=== PATIENT | male | born 1995 | race Asian ===

== ENCOUNTER 2017-07-19 15:56 | Emergency (ER) | payer OTHER ==
[2017-07-19 15:59] VITALS: TEMP 37; Ht 182.9 cm
[2017-07-19] MEDS ORDERED: ACETAMINOPHEN 500 MG TAB PO STA (16:45)
[2017-07-19] MEDS ORDERED: TRAMADOL HCL 50 MG TAB PO STA (16:45)
[2017-07-19] MEDS ORDERED: ONDANSETRON 4MG OD TAB PO STA (16:45)
[2017-07-19] MEDS ORDERED: ATV/1 PO (16:48)
--- NOTE | 2017-07-19 17:18 | DIAGNOSTIC IMAGING REPORT ---
HEAD WITHOUT CONTRAST (CT) CLINICAL HISTORY: 22 years-old Male presenting with WORSENING ALDANA, NO CHI. TECHNIQUE: Multidetector CT imaging of the head was performed without the use of intravenous contrast. IV contrast: None. A dose lowering technique was used consistent with the principles of ALARA (as low as reasonably achievable). COMPARISON: None. CT DOSE (mGy.cm): The estimated cumulative dose is 537.48 mGy.cm. FINDINGS: High Density Press Operator topogram: Unremarkable. Ventricles and sulci normal in size. Brain parenchyma normal in appearance with preserved johns-white differentiation. No mass effect or midline shift. No hemorrhage or acute territorial infarct. No extra-axial fluid collection. Paranasal sinuses and mastoid air cells clear. Calvarium intact. IMPRESSION: 1. No acute intracranial abnormality. Electronically signed by: Rafat Alva M.D. 07/19/2017 5:17 PM Dictated Date/Time: 07/19/2017 5:14 PM
[2017-07-19] MEDS ORDERED: TRAM-10 PO (18:04)
[2017-07-19] MEDS ORDERED: FRCT/ PO (18:04)
[2017-07-19 18:25] VITALS: BP 125/79; PULSE 77; O2SAT 99
--- NOTE | 2017-07-20 02:19 | EMERGENCY ROOM VISIT NOTE ---
History First contact with patient: 16:33 Chief Complaint: HEADACHE Stated Complaint: HEADACHE History of Present Illness The patient is a 22 year old male who presents to the Emergency Room with complaints of frequent and worsening headaches. The patient reports that he has had the symptoms over the past year. He reports that he gets headaches in the top of his head that then starts to radiate around both temples. He also reports tinnitus, photophobia, phonophobia and nausea. The patient denies any significant head injuries. Seen at [facility] four times for his headaches, and prescribed Klonopin for anxiety. He has been using ibuprofen without relief of his pain. He reports a strong family history of migraines. He denies any recent upper respiratory infections, cough, sore throat, sinus congestion or earache. He also denies any pain extending into the neck or back. He currently rates his discomfort a 9 out of 10. The patient is an undergraduate student and reports being under a lot of stress right now. His sleep pattern is irregular. The patient denies having any imaging or laboratory studies performed at [facility]. Review of Systems 10 system review was performed and was negative except for pertinent positives and negatives as indicated in history of present illness Past Medical/Surgical History Medical Problems: (1) ADHD (attention deficit hyperactivity disorder) Surgical Problems: (1) No history of previous surgery Family History FH: migraines Social History Smoking Status: Current Some Day Smoker Alcohol Use: occasionally Marital Status: single Housing Status: lives with roommate Occupation Status: [employer] Current/Historical Medications Scheduled PRN Acetamin/Butalbital/Caffeine (Fioricet), 1 TAB PO Q4H PRN for headache Lorazepam (Ativan), 1 MG PO UD PRN for ANXIETY Tramadol (Ultram), 1-2 TAB PO Q4H PRN for Pain Physical Exam Vital Signs Date Time Temp Pulse Resp B/P (MAP) Pulse Ox O2 Delivery O2 Flow Rate FiO2 07/19/17 18:25 77 18 125/79 99 07/19/17 15:59 37.0 100 18 127/88 98 Room Air Physical Exam CONSTITUTIONAL: Healthy and well nourished. Alert and oriented X 3 with positive affect. Patient appears in moderate discomfort from pain, holding his eyes shut. HEENT: Normocephalic, atraumatic. Pupils equal, round and reactive. Ears and nares are clear. Patient is photophobic, precluding funduscopic exam. No scleral icterus or conjunctival injection noted. NECK: Full active range of motion without discomfort. No JVD or carotid bruits. RESPIRATORY: Clear to auscultation bilaterally with no wheezing, crackles, rhonchi or stridor. CARDIOVASCULAR: Regular rate and rhythm with no murmurs, rubs or gallops. GASTROINTESTINAL: Bowel sounds present in all quadrants. Soft and nontender to palpation. MUSCULOSKELETAL: Full range of motion of all joints without discomfort. Equal hand event sales manager bilaterally. INTEGUMENTARY: No rash or other significant dermatologic conditions noted. NEUROLOGIC: Cranial nerves II-XII grossly intact. No focal neurologic deficits noted. Normal finger to nose test. Negative pronator drift. No ataxia with ambulation. Medical Decision & Procedures ER Provider Diagnostic Interpretation: Noncontrast CT of the head does not show any intracranial bleed, suspicious masses, midline shift or mass effect. Radiologist report is as follows: HEAD WITHOUT CONTRAST (CT) CLINICAL HISTORY: 22 years-old Male presenting with WORSENING ALDANA, NO CHI. TECHNIQUE: Multidetector CT imaging of the head was performed without the use of intravenous contrast. IV contrast: None. A dose lowering technique was used consistent with the principles of ALARA (as low as reasonably achievable). COMPARISON: None. CT DOSE (mGy.cm): The estimated cumulative dose is 537.48 mGy.cm. FINDINGS: Sr. Consultant topogram: Unremarkable. Ventricles and sulci normal in size. Brain parenchyma normal in appearance with preserved johns-white differentiation. No mass effect or midline shift. No hemorrhage or acute territorial infarct. No extra-axial fluid collection. Paranasal sinuses and mastoid air cells clear. Calvarium intact. IMPRESSION: 1. No acute intracranial abnormality. Medications Administered Medications (Trade) Dose Ordered Sig/Rupinder Route Start Time Stop Time Status Last Admin Dose Admin Tramadol HCl (Ultram Tab) 50 mg NOW STAT PO 07/19/17 16:45 07/19/17 16:46 DC 07/19/17 17:05 50 MG Ondansetron HCl (Zofran Odt) 4 mg NOW STAT PO 07/19/17 16:45 07/19/17 16:46 DC 07/19/17 17:04 4 MG Acetaminophen (Tylenol Tab) 1,000 mg NOW STAT PO 07/19/17 16:45 07/19/17 16:46 DC 07/19/17 17:04 1,000 MG ED Course Patient history and physical exam were performed. Nurse's notes were reviewed. Vital signs were reviewed and were normal. The patient appears in moderate discomfort from his headache. He is notably photophobic. The patient was administered Ultram 50 mg, Tylenol 1000 mg and Zofran [address] of the head was normal. At this point, the patient was encouraged to follow-up with [facility] for further reevaluation and management. The patient expressed concern for his ongoing stress and anxiety as possible triggers for his headache. I also explained that his symptoms are consistent with a migraine headache. The patient was provided prescriptions for Ultram and Fioricet. He was also encouraged to alternate ibuprofen and Tylenol for baseline pain relief. The patient voiced understanding of all discharge instructions, and discharged with a female friend. He rated his headache a 4 out of 10 at the conclusion of my exam. Medical Decision See previous section. The patient's symptoms are consistent with a migraine headache. At this point, noncontrast CT does not show any acute findings. It is possible that he may need an MRI if symptoms are not improving. I did suggest neurology and psychiatry follow-up and management through [facility]. I do not feel that further inpatient management is warranted. [place] Drug Monitoring Program Search Results: patient reviewed within database, no issues identified Medication Reconcilliation Current Medication List: was personally reviewed by me Blood Pressure Screening Patient's blood pressure: Normal blood pressure Impression Primary Impression: Headache Additional Impression: Anxiety Departure Information Prescriptions Acetamin/Butalbital/Caffeine (FIORICET) 1 Ea Tab 1 TAB PO Q4H Y for headache, #20 TAB Prov: Anil Bates PA 07/19/17 Tramadol (Ultram) 50 Mg Tab 1-2 TAB PO Q4H Y for Pain, #20 TAB For Initial Treatment Prov: Anil Bates PA 07/19/17 Referrals No Doctor, Assigned (PCP) Patient Instructions My [facility] Problem Qualifiers Primary Impression: Headache Headache type: unspecified Headache chronicity pattern: acute headache Intractability: not intractable Qualified Codes: R51 - Headache
== END 2017-07-19 18:35 | disposition home or self-care (01) ==
LOC: C.EDB 15:57 → C.EDA 18:35
DX: R51 Headache (principal); F41.9 Anxiety disorder, unspecified; F90.9 Attention-deficit hyperactivity disorder, unspecified type; F17.200 Nicotine dependence, unspecified, uncomplicated

== ENCOUNTER 2017-08-26 04:15 | Emergency (ER) | payer OTHER ==
[~2017-08-26] VITALS: Ht 188 cm; Wt 75.0 kg
[2017-08-26 04:17] VITALS: TEMP 36.7; Ht 188 cm; Wt 75.0 kg
[2017-08-26] MEDS ORDERED: LORAZEPAM 1 MG TAB SL STA (04:20)
[2017-08-26] MEDS ORDERED: KLN1X PO (04:23)
[2017-08-26 05:51] VITALS: BP 130/83; PULSE 72; O2SAT 98
--- NOTE | 2017-08-26 06:11 | EMERGENCY ROOM VISIT NOTE ---
History First contact with patient: 04:20 Chief Complaint: ANXIETY Stated Complaint: ANXIETY History of Present Illness The patient is a 22 year old male who presents to the Emergency Room via S with complaints of anxiety. Patient reports that he has a headache, nausea, elevated heart rate, shakiness, and difficulty breathing. He has a history of anxiety. He occasionally has episodes like this. He states his symptoms worsened this evening. He took a Klonopin and when he did not have improvement of his symptoms, called 911. The patient follows with [facility] for his anxiety. He states the symptoms feel like anxiety attacks he has had in the past. He does not take any medication for his anxiety. Denies any drug use. Review of Systems A complete 10 point review of systems was reviewed with the patient with pertinent positives and negatives as per history of present illness. All else were negative. Past Medical/Surgical History Medical Problems: (1) ADHD (attention deficit hyperactivity disorder) Surgical Problems: (1) No history of previous surgery Family History FH: migraines Social History Smoking Status: Never Smoker Alcohol Use: occasionally Marital Status: single Housing Status: lives with roommate Occupation Status: [employer] Current/Historical Medications Scheduled Clonazepam (Clonazepam), Unknown Dose PO DIRECTED Physical Exam Vital Signs Date Time Temp Pulse Resp B/P (MAP) Pulse Ox O2 Delivery O2 Flow Rate FiO2 08/26/17 05:51 72 16 130/83 98 Room Air 08/26/17 04:22 128 08/26/17 04:17 36.7 123 24 134/86 100 Room Air Physical Exam VITALS: Vitals are noted on the nurse's note and reviewed by myself. Vital signs stable. GENERAL: This is a 22-year-old male, very anxious appearing, shaky, talks in short sentences and at low volume. SKIN: The skin was without rashes, erythema, edema, or bruising. EARS: External auditory canals clear, tympanic membranes pearly johns without erythema or effusion bilaterally. EYES: Pupils equal round and reactive to light and accommodation. Extraocular movements intact. MOUTH: Mucous membranes moist. NECK: Supple without nuchal rigidity. HEART: Tachycardic, regular rhythm without murmurs gallops or rubs. LUNGS: Clear to auscultation bilaterally without wheezes, rales or rhonchi. NEURO: Patient was alert and oriented to person place and time. Medical Decision & Procedures Medications Administered Medications (Trade) Dose Ordered Sig/Rupinder Route Start Time Stop Time Status Last Admin Dose Admin Lorazepam (Ativan Tab) 1 mg NOW STAT SL 08/26/17 04:20 08/26/17 04:21 DC 08/26/17 04:25 1 MG ECG Rate (beats per minute): 113 Rhythm: sinus tachycardia Findings: nonspecific-ST abn (Lateral), no acute ischemic change, no ectopy Comparison ECG Date: heart rate increased, nonspecific ST changes Medical Decision Differential diagnosis includes anxiety, dehydration, electrolyte imbalance, drug use, among others. The patient is a 22-year-old male who presents today complaining of symptoms of an anxiety attack. Patient has been evaluated here multiple times for anxiety- related symptoms. He states his symptoms today are similar. He has had full workups on recent visits. He was treated with 1 mg Ativan with significant improvement of his symptoms. He was able to sleep after receiving the Ativan. His heart rate improved from 123 bpm to 72 bpm. The patient follows with [facility] regarding his anxiety and I recommended that he see them today if possible. He would likely benefit from a daily anxiety medication. Based on the patient's presentation and work up, I feel the patient is stable for outpatient treatment. The patient was educated to return to the emergency department for any worsening of their current condition or new/concerning symptoms. He will follow up with [facility]. Medication Reconcilliation Current Medication List: was personally reviewed by me Blood Pressure Screening Patient's blood pressure: Normal blood pressure Impression Primary Impression: Anxiety Departure Information Dispostion Home / Self-Care Condition GOOD Referrals [facility] (PCP) Patient Instructions My [facility] Additional Instructions Contact [facility] this morning to schedule a follow up as soon as possible. You would likely benefit from a daily medication to help with your anxiety. Do not drink alcohol or use any drugs. These can worsen your anxiety. Return to the emergency department with any new/concerning symptoms.
== END 2017-08-26 06:19 | disposition home or self-care (01) ==
LOC: C.EDA 04:16
DX: F41.9 Anxiety disorder, unspecified (principal); F90.9 Attention-deficit hyperactivity disorder, unspecified type; R00.0 Tachycardia, unspecified; Z82.0 Family history of epilepsy and other diseases of the nervous system

== ENCOUNTER 2017-09-09 17:22 | Emergency (ER) | payer OTHER ==
[~2017-09-09] VITALS: Ht 188 cm; Wt 70.7 kg
[~2017-09-09 17:22] MED LIST: KLN1X PO
[2017-09-09 17:29] VITALS: Ht 188 cm; Wt 70.7 kg
[2017-09-09 18:29] LABS: BASO % 0.2 %; BASO ABS # 0.02 K/uL (0-0.2); EOS % 0.6 %; EOS ABS # 0.05 K/uL (0-0.5); HEMATOCRIT 42.4 % (42-52); HEMOGLOBIN 14.9 g/dL (14.0-18.0); IG# 0.02 K/uL (0.00-0.02); LYMPH % 17.7 %; MEAN CORPUSCULAR HEMOGLOBIN 29.5 pg (25-34); MEAN CORPUSCULAR HGB CONC 35.1 g/dl (32-36); MONO % 7.8 %; NEUT % 73.5 %; NEUT ABS # 6.64 K/uL (1.4-6.5); PLATELET COUNT 226 K/uL (130-400); RED CELL DISTRIBUTION WIDTH CV 12.4 % (11.5-14.5); RED CELL DISTRIBUTION WIDTH SD 37.7 fL (36.4-46.3); WHITE BLOOD COUNT 9.03 K/uL (4.8-10.8)
[2017-09-09 18:46] LABS: ALBUMIN 4.3 gm/dl (3.4-5.0); ALT/SGPT 20 U/L (12-78); BLOOD UREA NITROGEN 11 mg/dl (7-18); CALCIUM 9.4 mg/dl (8.5-10.1); CARBON DIOXIDE 23 mmol/L (21-32); GLUCOSE 100 mg/dl (70-99); POTASSIUM 3.3 mmol/L (3.5-5.1); SODIUM 138 mmol/L (136-145)
[2017-09-09 18:57] LABS: ALKALINE PHOSPHATASE 81 U/L (45-117); AST/SGOT 9 U/L (15-37)
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
[2017-09-10 01:58] VITALS: BP 115/75; PULSE 61; TEMP 36.8; O2SAT 98
== END 2017-09-10 01:59 | disposition short-term general hospital (02) ==
LOC: EDBD 17:22 → C.EDD 17:24 → C.EDA 09-10 01:59
DX: F32.9 Major depressive disorder, single episode, unspecified (principal); F41.9 Anxiety disorder, unspecified; F90.9 Attention-deficit hyperactivity disorder, unspecified type